=== PATIENT | female | born 1990 | race Caucasian/White ===

== ENCOUNTER 2017-02-10 12:56 | Emergency (ER) | payer MEDICAID ==
[2017-02-10 12:56] VITALS: BMI 23.0
[2017-02-10 13:00] VITALS: BP 112/72; PULSE 77; RESP 18; TEMP 97.9; O2SAT 100
--- NOTE | 2017-02-10 13:29 | C.PDOC ---
History Of Present Illness Patient is a 27 y/o female that presents to the ED for evaluation of right ankle pain and swelling since yesterday. Patient states she twisted her right ankle yesterday. Otherwise, denies any numbness/weakness, skin changes, or any other associated symptoms at this time. Chief Complaint (Nursing): Lower Extremity Problem/Injury History Per: Patient History/Exam Limitations: no limitations Onset/Duration Of Symptoms: Days (1) Current Symptoms Are (Timing): Still Present Recent travel outside of the [place]: No - Ankle/Foot Description Of Injury: Twisted Past Medical History Reviewed: Historical Data, Nursing Documentation, Vital Signs Vital Signs: Last Vital Signs Temp 97.9 F 02/10/17 12:59 Pulse 77 02/10/17 12:59 Resp 18 02/10/17 12:59 BP 112/72 02/10/17 12:59 Pulse Ox 100 02/10/17 14:29 - Medical History PMH: Asthma Denies: Chronic Kidney Disease - [employer] Procedures INJECT/INFUSE ELECTROLYT (02/04/15) Family History: States: Unknown Family Hx - Social History Hx Tobacco Use: Yes Hx Alcohol Use: Yes Hx Substance Use: No - Immunization History Hx Tetanus Toxoid Vaccination: Yes Hx Influenza Vaccination: No Hx Pneumococcal Vaccination: No Review Of Systems Except As Marked, All Systems Reviewed And Found Negative. Constitutional: Negative for: Fever, Chills Musculoskeletal: Positive for: Foot Pain (right ankle) Neurological: Negative for: Weakness, Numbness Physical Exam - Physical Exam Appears: Non-toxic, No Acute Distress Skin: Normal Color, Warm, Dry Extremity: Normal ROM, Tenderness (right lateral malleolus), No Pedal Edema, Capillary Refill (< 2 sec.), No Deformity, Swelling (right lateral malleolus), Other (eccymosis of the right lateral malleolus) Extremity: Bilateral: Normal Color And Temperature, Normal ROM Pulses: Left Dorsalis Pedis: Normal, Right Dorsalis Pedis: Normal Neurological/Psych: Oriented x3, Normal Speech, Normal Cognition, Normal Motor, Normal Sensation ED Course And Treatment O2 Sat by Pulse Oximetry: 100 (on RA) Pulse Ox Interpretation: Normal - Other Rad Right ankle x-ray X-Ray: Interpreted by Me, Viewed By Me Interpretation: No fracture or dislocation Progress Note: Right ankle x-ray ordered and reviewed. Patient was treated with Motrin PO in th ER. On reassessment, abel reports improvement of her symptoms. Patient will be discharged home. Disposition - Disposition Referrals: Tamir Zelaya MD [Staff Provider] - Disposition: HOME/ ROUTINE Disposition Time: 14:20 Condition: STABLE Additional Instructions: Follow up with PMD and Orthopedist within 1-2 days. Return to ED if feel worse. Prescriptions: Ibuprofen [Motrin Tab] 600 mg PO Q8 #30 tab Instructions: Ankle Sprain (ED), Ankle Stirrup Splint (ED) - Clinical Impression Clinical Impression: Ankle sprain - PA / MATERIAL ASSEMBLER / Resident Statement MD/DO has reviewed & agrees with the documentation as recorded. - Scribe Statement The provider has reviewed the documentation as recorded by the Scribe Tarah Claire All medical record entries made by the Brittanieibjerica were at my direction and personally dictated by me. I have reviewed the chart and agree that the record accurately reflects my personal performance of the history, physical exam, medical decision making, and the department course for this patient. I have also personally directed, reviewed, and agree with the discharge instructions and disposition.
--- NOTE | 2017-02-10 17:28 | RAD ---
PROCEDURE: Right Ankle Radiographs. HISTORY: twisted COMPARISON: None FINDINGS: BONES: Normal. No fracture. JOINTS: Normal. No osteoarthritis. Ankle mortise maintained. Talar dome intact SOFT TISSUES: [id number] soft tissue swelling. OTHER FINDINGS: None. IMPRESSION: No evidence of acute fracture or dislocation.
== END 2017-02-10 14:33 | disposition home or self-care (01) ==
LOC: C.ER 12:56
DX: S93.401A Sprain of unspecified ligament of right ankle, initial encounter (principal); X50.0XXA Overexertion from strenuous movement or load, initial encounter; Y92.9 Unspecified place or not applicable